=== PATIENT | female | born 1955 | race Two or more races ===

== ENCOUNTER 2019-11-03 07:18 | Outpatient (CLI) | payer OTHER | END 2019-11-03 07:25 | disposition home or self-care (01) | LOC: NUCLEAR 07:18 | PROVIDERS: ATTEND Internal Medicine Gastroenterology | DX: K57.30 Diverticulosis of large intestine without perforation or abscess without bleeding (principal); K30 Functional dyspepsia; K86.2 Cyst of pancreas | CPT/HCPCS: 78264; A9541 ==

== ENCOUNTER 2020-01-28 07:20 | Outpatient (CLI) | payer OTHER | END 2020-01-28 07:23 | disposition home or self-care (01) | LOC: TOM 07:20 | DX: Z12.11 Encounter for screening for malignant neoplasm of colon (principal); Z86.010 Personal history of colon polyps; D50.8 Other iron deficiency anemias ==

== ENCOUNTER 2020-03-04 08:00 | Outpatient (CLI) | payer OTHER | END 2020-03-04 08:06 | disposition home or self-care (01) | LOC: RX STUDY 08:00 | PROVIDERS: ATTEND Internal Medicine Gastroenterology | DX: K30 Functional dyspepsia (principal); R13.19 Other dysphagia ==

== ENCOUNTER 2024-09-23 07:42 | Outpatient (CLI) | payer OTHER | END 2024-09-23 07:44 | disposition home or self-care (01) | LOC: RX STUDY 07:42 | DX: R13.12 Dysphagia, oropharyngeal phase (principal); Z87.11 Personal history of peptic ulcer disease ==